=== PATIENT | female | born 1950 | race Caucasian/White ===

== ENCOUNTER → 2018-12-09 | Outpatient (CLI) | payer MEDICARE, OTHER ==
[~2018-12-09] MED LIST: NO HOME MEDICATIONS
== END ==
LOC: COL.RAD 11:48
DX: Z01.812 Encounter for preprocedural laboratory examination (principal); Z51.81 Encounter for therapeutic drug level monitoring; G35 Multiple sclerosis; G37.9 Demyelinating disease of central nervous system, unspecified; E55.9 Vitamin D deficiency, unspecified; E53.8 Deficiency of other specified B group vitamins
CPT/HCPCS: A9585